=== PATIENT | female | born 1995 | race Caucasian/White ===

== ENCOUNTER 2016-12-23 10:23 | Emergency (ER) | payer MEDICAID ==
--- NOTE | 2016-12-23 10:44 | Emergency Department Record ---
History of Present Illness - General Chief complaint: Extremity Problem Stated complaint: R HAND AND ARM NUMB/PAIN Time Seen by Provider: 12/23/16 10:26 Source: Patient Mode of Arrival: Ambulatory Limitations: No limitations - History of Present Illness Initial comments: 21 yo female presents to ED with a CC of right wrist pain and numbness for the past 6 weeks. Patient reports that her symptoms have been worsening. Patient reports that she performs repetitive work with her hands at the [employer] that she currently works at. Patient denies injury or trauma. Patient denies health problems at her baseline. MD Complaint: Extremity pain Onset/Timin -: Week(s) Location: Right, Forearm, Hand History of Same: Yes -: Yes Arthralgia Radiation: Distal Severity scale (1-10): 7 Quality: Burning Consistency: Constant Improves with: Nothing Worsens with: Palpation, Other - Related Data Home Medications Medication Instructions Recorded Confirmed Last Taken Loratadine [Claritin] 1 tab PO DAILY 12/23/16 12/23/16 12/23/16 Allergies Allergy/AdvReac Type Severity Reaction Status Date / Time No Known Allergies Allergy none Unverified 12/23/16 10:36 Travel Screening - Travel/Exposure Within Last 30 Days Have you traveled within the last 30 days?: No - Travel/Exposure Within Last Year Have you traveled outside the [place] in the last year?: No - Additonal Travel Details Have you been exposed to anyone with a communicable illness?: No - Travel Symptoms Symptom Screening: None Review of Systems Constitutional: Denies: Chills, Fever, Malaise, Night sweats Eyes: Denies: Eye discharge, Eye pain ENT: Denies: Congestion, Ear pain Respiratory: Denies: Cough, Dyspnea Cardiovascular: Denies: Chest pain, Dyspnea on exertion Endocrine: Denies: Fatigue, Heat or cold intolerance Gastrointestinal: Denies: Abdominal pain, Nausea, Vomiting Genitourinary: Denies: Incontinence, Retention Musculoskeletal: Reports: Arthralgia. Denies: Back pain, Gout, Joint swelling Skin: Denies: Bruising, Change in color Neurological: Denies: Abnormal gait, Confusion, Headache, Seizure Psychiatric: Denies: Anxiety Hematological/Lymphatic: Denies: Anemia, Blood Clots Past Medical History - SOCIAL HISTORY Smoking Status: Never smoker Alcohol Use: Occassional Drug Use: None - RESPIRATORY Hx Respiratory Disorders: No - CARDIOVASCULAR Hx Cardio Disorders: No - NEURO Hx Neuro Disorders: No Comment:: Bilateral optic nerve atrophy - GI Hx GI Disorders: No - Hx Genitourinary Disorders: No - ENDOCRINE Hx Endocrine Disorders: No - MUSCULOSKELETAL Hx Musculoskeletal Disorders: No - PSYCH Hx Psych Problems: No - HEMATOLOGY/ONCOLOGY Hx Hematology/Oncology Disorders: No Family Medical History Any Significant Family History?: No Physical Exam - General General Appearance: Alert, Oriented x3, Cooperative, No acute distress Limitations: No limitations - Head Head exam: Atraumatic, Normocephalic, Normal inspection Head exam detail: negative: Abrasion, Contusion, Salas's sign, General tenderness, Hematoma, Laceration - Eye Eye exam: Normal appearance, Other (disconjugate gaze on examination). negative : Conjunctival injection, Periorbital swelling, Periorbital tenderness, Scleral icterus - ENT Ear exam: negative: Auricular hematoma, Auricular trauma Nasal Exam: negative: Active bleeding, Discharge, Dried blood Mouth exam: negative: Drooling, Laceration, Muffled voice, Tongue elevation - Neck Neck exam: Normal inspection. negative: Meningismus, Tenderness - Respiratory Respiratory exam: Normal lung sounds bilaterally. negative: Rales, Respiratory distress, Rhonchi, Stridor - Cardiovascular Cardiovascular Exam: Regular rate, Normal rhythm, Normal heart sounds - GI/Abdominal GI/Abdominal exam: Soft. negative: Rebound, Rigid, Tenderness - Rectal Rectal exam: Deferred - exam: Deferred - Extremities Extremities exam: Tenderness (TTP over the distal wrist, symptoms worsen with Tinel's and Phalens on examination, strong radial pulse). negative: Calf tenderness, Pedal edema - Back Back exam: Denies: CVA tenderness (R), CVA tenderness (L) - Neurological Neurological exam: Alert, Normal gait, Oriented X3 - Psychiatric Psychiatric exam: Normal affect, Normal mood - Skin Skin exam: Normal color. negative: Abrasion Type of lesion: negative: abrasion Course Vital Signs 12/23/16 10:26 Temperature 97.8 F Pulse Rate 73 Respiratory 16 Rate Blood Pressure 113/96 Pulse Ox 96 - Reevaluation(s) Reevaluation #1: 12/23/16 10:48 History and physical examination appear c/w carpal tunnel syndrome, with treat with wrist splint and NSAID's for symptomatic treatment of her symptoms. Patient was also instructed to follow-up with Kailey Guerrier for further evaluation of her symptoms. Patient agrees with the plan as discussed. Disposition Disposition: Discharge Clinical Impression: CTS (carpal tunnel syndrome) Qualifiers: Laterality: right Qualified Code(s): G56.01 - Carpal tunnel syndrome, right upper limb Disposition: Home, Self-Care Condition: (2) Stable Instructions: Paresthesia (ED) Additional Instructions: Return to ED if your symptoms worsen or if you have any concerns. Wrist splint during activity/work/sleep Ibuprofen as directed for pain/inflammation symptoms. Follow-up with Kailey Guerrier in 3-5 days as directed. Forms: Patient Portal Access Time of Disposition: 10:44
== END 2016-12-23 10:56 | disposition home or self-care (01) ==
LOC: ER 10:23
DX: G56.01 Carpal tunnel syndrome, right upper limb (principal)
CPT/HCPCS: 99282